=== PATIENT | female | born 1960 | race Caucasian/White ===

== ENCOUNTER 2017-06-11 16:03 | Outpatient (CLI) | payer BC | END 2017-06-11 16:04 | disposition home or self-care (01) | LOC: BICMAMMO 16:03 | PROVIDERS: ATTEND Obstetrics & Gynecology | DX: Z12.31 Encounter for screening mammogram for malignant neoplasm of breast (principal) | CPT/HCPCS: 77063; 77067 ==

== ENCOUNTER 2018-10-30 09:21 | Outpatient (CLI) | payer BC ==
--- NOTE | 2018-10-30 10:10 | MMO ---
Bilateral MAMMO Bilat Screen [facility]. CLINICAL HISTORY: Patient is 58 years old and is seen for screening. The patient has no family history of breast cancer. The patient has no personal history of cancer. VIEWS: The views performed were: bilateral craniocaudal with tomosynthesis and bilateral mediolateral oblique with tomosynthesis. FILMS COMPARED: The present examination has been compared to prior imaging studies performed at [facility] on 12/31/2013, 05/25/2015, 06/03/2016 and 06/11/2017. MAMMOGRAM FINDINGS: There are scattered fibroglandular densities. There are stable benign appearing calcifications seen in both breasts. There are no suspicious masses, suspicious calcifications, or new areas of architectural distortion. IMPRESSION: THERE IS NO MAMMOGRAPHIC EVIDENCE OF MALIGNANCY. A ROUTINE FOLLOW-UP MAMMOGRAM IN 1 YEAR IS RECOMMENDED. THE RESULTS OF THIS EXAM WERE SENT TO THE PATIENT. ACR BI-RADS Category 2 - Benign finding MAMMOGRAPHY NOTE: 1. A negative mammogram report should not delay a biopsy if a dominant of clinically suspicious mass is present. 2. Approximately 10% to 15% of breast cancers are not detected by mammography. 3. Adenosis and dense breasts may obscure an underlying neoplasm.
== END 2018-10-30 09:22 | disposition home or self-care (01) ==
LOC: BICMAMMO 09:21
PROVIDERS: ATTEND Internal Medicine
DX: Z12.31 Encounter for screening mammogram for malignant neoplasm of breast (principal)
CPT/HCPCS: 77063; 77067

== ENCOUNTER 2019-02-01 14:21 | Outpatient (CLI) | payer BC ==
--- NOTE | 2019-02-01 14:56 | MMO ---
Right Breast MAMMO Unilat Diag [facility]. CLINICAL HISTORY: Patient is 58 years old and is seen for diagnostic exam. The patient has no family history of breast cancer. The patient has no personal history of cancer. VIEWS: The views performed were: right craniocaudal with tomosynthesis; right mediolateral oblique with tomosynthesis; and right mediolateral with tomosynthesis. FILMS COMPARED: The present examination has been compared to prior imaging studies performed at [facility] on 05/25/2015, 06/03/2016, 06/11/2017 and 10/30/2018. This study has been interpreted with the assistance of computer-aided detection. MAMMOGRAM FINDINGS: There are scattered fibroglandular densities. There are benign appearing calcifications seen in the right breast. There are no suspicious masses, calcifications or areas of architectural distortion. There are no suspicious masses, suspicious calcifications, or new areas of architectural distortion. IMPRESSION: THERE IS NO MAMMOGRAPHIC EVIDENCE OF MALIGNANCY. A ROUTINE FOLLOW-UP MAMMOGRAM IN 1 YEAR IS RECOMMENDED. THE RESULTS OF THIS EXAM WERE SENT TO THE PATIENT. ACR BI-RADS Category 2 - Benign finding MAMMOGRAPHY NOTE: 1. A negative mammogram report should not delay a biopsy if a dominant of clinically suspicious mass is present. 2. Approximately 10% to 15% of breast cancers are not detected by mammography. 3. Adenosis and dense breasts may obscure an underlying neoplasm. Reported by: TINA SNYDER MD Electonically Signed: [id number]
== END 2019-02-01 14:22 | disposition home or self-care (01) ==
LOC: BICMAMMO 14:21
PROVIDERS: ATTEND Nurse Practitioner Adult Health
DX: N64.52 Nipple discharge (principal)
CPT/HCPCS: G0279

== ENCOUNTER 2019-11-02 13:42 | Outpatient (CLI) | payer BC ==
--- NOTE | 2019-11-02 14:51 | MRI ---
EXAM: MRI right shoulder PROVIDED CLINICAL HISTORY: Pain COMPARISON: None FINDINGS: There is a full-thickness, partial width tear involving the posterior supraspinatus tendon. This demo nstrates intratendinous delamination with maximal retraction of about 2 cm. The components of the rotator cuff appear otherwise intact. There is prominent thickening and increased signal intensity on fluid sensitive sequences involving t he intra-articular long head biceps tendon. There is abnormal signal intensity extending into the biceps anchor and posterior aspects of superior labrum. There is somewhat focal articular cartilage l oss involving the central aspects of the glenoid and inferior aspects of the humeral head, approaching full-thickness. There is a moderate glenohumeral joint effusion and greater than physiologic subacromial subdeltoid b ursal fluid. Acromioclavicular joint osteoarthrosis is noted, producing mild mass effect upon the subjacent supras pinatus. No focal concerning regional marrow or muscular signal abnormality apparent. Rotator cuff muscular volume appears preserved. IMPRESSION: 1. Full-thickness, partial width delaminating tear of the supraspinatus tendon. 2. SLAP tear with extension to involve the biceps anchor and partial thickness not attenuating tearin g of the intra-articular biceps tendon. 3. Moderate glenohumeral joint effusion. 4. Acromioclavicular joint osteoarthrosis.
== END 2019-11-02 13:43 | disposition home or self-care (01) ==
LOC: SCSMRI 13:42
PROVIDERS: ATTEND Orthopaedic Surgery
DX: M75.121 Complete rotator cuff tear or rupture of right shoulder, not specified as traumatic (principal); M19.011 Primary osteoarthritis, right shoulder; M25.411 Effusion, right shoulder; S43.431A Superior glenoid labrum lesion of right shoulder, initial encounter

== ENCOUNTER 2023-10-15 12:04 | Observation (INO) | payer OTHER, SELFPAY ==
[2023-10-15 12:44] LABS: #Basophils 0.06 10x3/uL (0.0-0.2); %Basophils 0.7 % (0.0-1.0); %Eosinophils 1.1 % (0.0-10.0); %Lymphocytes 19.1 % (21.0-51.0); %Monocytes 4.3 % (0.0-10.0); %Neutrophils 74.2 % (42.0-75.0); Hematocrit 39.7 % (36.0-47.0); Hemoglobin 14.1 g/dL (12.0-16.0); Mean Corpuscular HGB CONC 35.5 g/dL (32.0-36.0); Mean Corpuscular Hemoglobin 30.2 pg (27.0-31.0); Mean Platelet Volume 10.3 fL (7.4-10.4); Platelet Count 201 10x3/uL (130-400); RBC Distribution Width 12.7 % (11.5-14.5); Red Blood Cell (RBC) Count 4.67 mill/uL (4.20-5.40)
[2023-10-15] MEDS ORDERED: Ondansetron PF 4 MG/2 ML Vial ONE (12:56)
[2023-10-15] MEDS ORDERED: Morphine 4 MG/ML VIAL ONE (12:56)
[2023-10-15 12:59] LABS: ALT (SGPT) 12 U/L (8-55); AST (SGOT) 15 U/L (5-34); Alkaline Phosphatase 47 U/L (40-110); Anion Gap 15 mmol/L (10-20); BUN (Urea Nitrogen) 11 mg/dL (9.8-20.1); Bilirubin, Total 0.8 mg/dL (0.2-1.2); Calc. Creatinine Clearance 0 mL/min (70-130); Calcium 9.5 mg/dL (7.8-10.44); Carbon Dioxide 19 mmol/L (23-31); Chloride 104 mmol/L (98-107); Estimated GFR 82; Globulin 3.1 g/dL (2.4-3.5); Glucose 118 mg/dL (80-115); Lipase 16 U/L (8-78); Potassium 3.1 mmol/L (3.5-5.1); Protein, Total 7.1 g/dL (5.8-8.1); Sodium 135 mmol/L (136-145)
[2023-10-15] MEDS ORDERED: Glucagon 1 MG/ML KIT IM PRN (14:59)
[2023-10-15] MEDS ORDERED: Calcium Carbonate 500 MG ChewTAB PO PRN (14:59)
[2023-10-15] MEDS ORDERED: Mag-Al 1200 mg/1200 mg/30 ML UDCUP PO PRN (14:59)
[2023-10-15] MEDS ORDERED: Ondansetron PF 4 MG/2 ML Vial IVP PRN (14:59)
[2023-10-15] MEDS ORDERED: Promethazine HCl 25 MG/ML VIAL IM PRN (14:59)
[2023-10-15] MEDS ORDERED: Dextrose 5% in Water 1,000 ML IV PRN (14:59)
[2023-10-15] MEDS ORDERED: Ipratropium/Albuterol 3 ML NEB NEB PRN (14:59)
[2023-10-15] MEDS ORDERED: Dextrose 50% Abboject 50 ML SYRINGE SLOW IVP PRN (14:59)
[2023-10-15] MEDS ORDERED: HYDROcodone/Acetaminophen 10/325 mg Tablet PO PRN (14:59)
[2023-10-15] MEDS ORDERED: hydrALAZINE 20 MG/ML VIAL SLOW IVP PRN (14:59)
[2023-10-15] MEDS ORDERED: Electrolyte Replacement Protocol 1 EACH FS SCH (15:01)
[2023-10-15] MEDS ORDERED: Morphine 2 MG/ML VIAL SLOW IVP PRN (15:01)
[2023-10-15 16:19] LABS: Lactic Acid 0.7 mmol/L (0.5-2.2)
[2023-10-15 17:40] VITALS: BMI 25.8
[2023-10-15] MEDS: Famotidine 20 MG TAB PO SCH (21:55)
[2023-10-15] MEDS: Famotidine/PF 20 mg/2ml Vial SLOW IVP SCH (21:55)
[2023-10-15] MEDS: Citalopram 20 MG TAB PO SCH (22:03)
[2023-10-15] MEDS: Zolpidem Tartrate 5 MG TAB PO SCH (22:03)
[2023-10-15] MEDS: traMADol HCl 50 MG TAB PO PRN (22:11)
[2023-10-15] MEDS: Potassium Chloride 20 MEQ in Premix 1 BAG IVPB SCH (22:12)
[2023-10-16] MEDS ORDERED: Indocyanine Green 25 MG/10 ML VIAL IVP SCH (06:00)
[2023-10-16] MEDS ORDERED: SUGAMMADEX SODIUM 200 MG/2 ML VIAL ONE (06:25)
[2023-10-16] MEDS ORDERED: fentaNYL PF 100 MCG/2 ML SYRINGE ONE (06:25)
[2023-10-16] MEDS ORDERED: PROPOFOL 20 ML ONE (06:25)
[2023-10-16] MEDS ORDERED: Midazolam HCl 2 mg/2 ml Vial ONE (06:26)
[2023-10-16] MEDS ORDERED: Dexamethasone 4 mg/ml Vial ONE (06:28)
[2023-10-16] MEDS ORDERED: Rocuronium Bromide 10 MG/ML (10ML VIAL) ONE (06:28)
[2023-10-16] MEDS ORDERED: Ondansetron PF 4 MG/2 ML Vial ONE (06:28)
[2023-10-16] MEDS ORDERED: Lidocaine 1% PF 5 ML VIAL ONE (06:28)
[2023-10-16 06:29] LABS: #Basophils 0.05 10x3/uL (0.0-0.2); %Basophils 0.6 % (0.0-1.0); %Eosinophils 2.7 % (0.0-10.0); %Lymphocytes 25.1 % (21.0-51.0); %Neutrophils 63.2 % (42.0-75.0); Hematocrit 38.1 % (36.0-47.0); Hemoglobin 12.9 g/dL (12.0-16.0); Mean Corpuscular HGB CONC 33.9 g/dL (32.0-36.0); Mean Corpuscular Hemoglobin 29.7 pg (27.0-31.0); Mean Corpuscular Volume 87.8 fL (78.0-98.0); Mean Platelet Volume 10.5 fL (7.4-10.4); Platelet Count 161 10x3/uL (130-400); RBC Distribution Width 13.2 % (11.5-14.5); Red Blood Cell (RBC) Count 4.34 mill/uL (4.20-5.40)
[2023-10-16] MEDS ORDERED: EPINEPHrine 1 MG/ML VIAL ONE (06:29)
[2023-10-16] MEDS ORDERED: Bupivacaine 0.25% HCL 30 ML VIAL ONE (06:29)
[2023-10-16 06:45] LABS: ALT (SGPT) 63 U/L (8-55); AST (SGOT) 68 U/L (5-34); Albumin 3.3 g/dL (3.4-4.8); Alkaline Phosphatase 46 U/L (40-110); Anion Gap 11 mmol/L (10-20); BUN (Urea Nitrogen) 10 mg/dL (9.8-20.1); Bilirubin, Total 1.2 mg/dL (0.2-1.2); Calc. Creatinine Clearance 82 mL/min (70-130); Calcium 8.8 mg/dL (7.8-10.44); Carbon Dioxide 23 mmol/L (23-31); Chloride 108 mmol/L (98-107); Estimated GFR 79; Globulin 2.8 g/dL (2.4-3.5); Glucose 101 mg/dL (80-115); Potassium 3.6 mmol/L (3.5-5.1); Protein, Total 6.1 g/dL (5.8-8.1); Sodium 138 mmol/L (136-145)
[2023-10-16] MEDS ORDERED: Indocyanine Green 25 MG/10 ML VIAL ONE (07:06)
[2023-10-16] MEDS ORDERED: Sodium Chloride 0.9% 100 ML ONE (07:27)
[2023-10-16] MEDS ORDERED: CEFAZOLIN 2 GM VIAL ONE (07:27)
[2023-10-16] MEDS ORDERED: PHENYLEPHRINE-NS 100 MCG/ML 10 ML SYRINGE ONE (07:57)
[2023-10-16] MEDS: Indocyanine Green 25 MG/10 ML VIAL IVP SCH (07:59)
[2023-10-16] MEDS ORDERED: Ondansetron HCl/PF 4 MG/2 ML Vial IVP PRN (08:50)
[2023-10-16] MEDS ORDERED: Promethazine HCl 25 MG/ML VIAL IM PRN (08:50)
[2023-10-16] MEDS ORDERED: Citalopram 20 MG TAB PO SCH ×2 (09:00→21:00)
[2023-10-16] MEDS ORDERED: Mag-Al 1200 mg/1200 mg/30 ML UDCUP PO PRN (09:10)
[2023-10-16] MEDS ORDERED: Dextrose 5% in Water 1,000 ML IV PRN (09:10)
[2023-10-16] MEDS ORDERED: Ondansetron PF 4 MG/2 ML Vial IVP PRN (09:10)
[2023-10-16] MEDS ORDERED: Ipratropium/Albuterol 3 ML NEB NEB PRN (09:10)
[2023-10-16] MEDS ORDERED: Calcium Carbonate 500 MG ChewTAB PO PRN (09:10)
[2023-10-16] MEDS ORDERED: Dextrose 50% Abboject 50 ML SYRINGE SLOW IVP PRN (09:10)
[2023-10-16] MEDS ORDERED: Glucagon 1 MG/ML KIT IM PRN (09:10)
[2023-10-16] MEDS ORDERED: HYDROcodone/Acetaminophen 10/325 mg Tablet PO PRN (09:13)
[2023-10-16] MEDS: D5 1/2 NS w/20 mEq KCL 1,000 ML IV SCH (10:05)
[2023-10-16] MEDS: Acetaminophen 325 MG TAB PO PRN (13:38)
[2023-10-16 19:41] VITALS: BP 109/78; TEMP 97.9
[2023-10-16] MEDS ORDERED: Docusate 100 MG CAP PO SCH (21:00)
[2023-10-16] MEDS ORDERED: Zolpidem Tartrate 5 MG TAB PO SCH (21:00)
== END 2023-10-16 17:58 | disposition home or self-care (01) ==
LOC: ERS 12:04 → SURG A 16:46
PROVIDERS: ADMIT Surgery; ATTEND Surgery
PROC: 0FT44ZZ Resection of Gallbladder, Percutaneous Endoscopic Approach (ICD-10-PCS; principal; 2023-10-16)
PROC: BF532Z0 Other Imaging of Gallbladder and Bile Ducts using Fluorescing Agent, Intraoperative (ICD-10-PCS; 2023-10-16)
DX: K80.12 Calculus of gallbladder with acute and chronic cholecystitis without obstruction (principal); I10 Essential (primary) hypertension; Z87.59 Personal history of other complications of pregnancy, childbirth and the puerperium; Z79.82 Long term (current) use of aspirin; Z79.899 Other long term (current) drug therapy
CPT/HCPCS: 36415; 76705; 80053; 83605; 83690; 85025; 87040; 88304; 93005; 96365; 96366; 96374; 96375; C1889; G0378; J0171; J0665; J1100; J2250; J2270; J2405; J2704; J3480; J3490